=== PATIENT | female | born 1975 | race Caucasian/White ===

== ENCOUNTER 2017-01-07 16:11 | Outpatient (CLI) | payer MEDICAID | END 2017-01-07 16:12 | disposition home or self-care (01) | DX: M25.512 Pain in left shoulder (principal); M75.52 Bursitis of left shoulder ==

== ENCOUNTER 2017-01-11 13:15 | Outpatient (CLI) | payer MEDICAID | END 2017-01-11 13:30 | disposition home or self-care (01) | DX: R07.89 Other chest pain (principal) ==

== ENCOUNTER 2017-01-11 14:20 | Outpatient (CLI) | payer MEDICAID | END 2017-01-11 14:21 | disposition home or self-care (01) | DX: R07.89 Other chest pain (principal) ==

== ENCOUNTER 2017-08-18 16:25 | Emergency (ER) | payer MEDICAID ==
[2017-08-18 16:33] VITALS: BP 127/81
--- NOTE | 2017-08-18 16:46 | ED Physician Documentation ---
History of Present Illness - Stated complaint Stated Complaint: RASH/SWELLING - Chief complaint Chief Complaint: Allergic Rx - History obtained from History obtained from: Patient - History of Present Illness Timing: Other (She woke this morning with a facial rash that is burning, also on the upper chest and anterior neck with some swelling of the anterior neck. The only thing she can think of that might of caused it would be raspberries but she eats those often, did have some last night.) Review of Systems Constitutional: denies: Fever, Chills Eyes: denies: Loss of vision, Decreased vision, Photophobia Ears: denies: Loss of hearing, Ear pain, Drainage/discharge Nose: denies: Rhinorrhea / runny nose, Congestion Throat: denies: Dental pain / toothache, Sore throat PD PAST MEDICAL HISTORY - Past Medical History Cardiovascular: None Endocrine/Autoimmune: None - Past Surgical History Past Surgical History: Yes General: Appendectomy - Present Medications Home Medications: Ambulatory Orders Medication Instructions Recorded Confirmed Cyclobenzaprine [Flexeril] 10 mg PO TID PRN 08/18/17 08/18/17 diphenhydrAMINE [Benadryl] 25 mg PO Q4-6H PRN #15 capsule 08/18/17 predniSONE [Deltasone] 60 mg PO DAILY 5 Days tablet 08/18/17 - Allergies Allergies/Adverse Reactions: Allergies Allergy/AdvReac Type Severity Reaction Status Date / Time Penicillins Allergy Hives Verified 08/18/17 16:40 - Social History Does the pt smoke?: No Smoking Status: Never smoker Does the pt drink ETOH?: Yes Does the pt have substance abuse?: Yes - Immunizations Immunizations are current?: No Immunizations: TDAP >10years/unknown PD ED PE NORMAL - Vitals Vital signs reviewed: Yes - General General: Alert and oriented X 3, No acute distress - HEENT HEENT: PERRL, EOMI - Neck Neck: Supple, no meningeal sign, No bony TTP - Derm Derm: Other (Modest hives on the face and the upper chest wall and anterior neck without airway compromise.) - Neuro Neuro: Alert and oriented X 3, Normal speech Results - Vitals Vitals: Vital Signs - 24 hr 08/18/17 16:29 Temperature 37.1 C Heart Rate 104 H Respiratory 18 Rate Blood Pressure 127/81 H O2 Saturation 98 Oxygen O2 Source Room air Departure - Departure Disposition: Home, Self Care Clinical Impression: Allergic urticaria Condition: Good Record reviewed to determine appropriate education?: Yes Instructions: ED Allergic Reaction General Other Prescriptions: diphenhydrAMINE [Benadryl] 25 mg PO Q4-6H PRN #15 capsule PRN Reason: burning/itching predniSONE [Deltasone] 60 mg PO DAILY 5 Days tablet Comments: Call your doctor to arrange a follow-up appointment, make the next available appointment. In the interim, return anytime if worse or if new symptoms develop. Your blood pressure was elevated today on check into the emergency department. This does not mean that you have hypertension, it is a common phenomenon to come to the emergency department and have elevated blood pressure. I recommend that she see your primary care physician within the week to have it rechecked when you are feeling better.
[2017-08-18] MEDS ORDERED: predniSONE 20 MG TABLET PO STA (16:47)
[2017-08-18] MEDS ORDERED: diphenhydrAMINE 25 MG CAPSULE PO STA (16:47)
[2017-08-18] MEDS ORDERED: diphenhydrAMINE 25 MG CAPSULE PO ONE ×2 (16:56→17:03)
[2017-08-18] MEDS ORDERED: predniSONE 20 MG TABLET ONE ×2 (16:56→17:04)
== END 2017-08-18 17:01 | disposition home or self-care (01) ==
LOC: ED 16:25
DX: L50.0 Allergic urticaria (principal); R03.0 Elevated blood-pressure reading, without diagnosis of hypertension; Z59.0 Homelessness
CPT/HCPCS: 99282; 99283; A9270; J7512

== ENCOUNTER 2017-12-17 18:33 | Emergency (ER) | payer MEDICAID ==
[2017-12-17] MEDS ORDERED: SODIUM CHLORIDE 0.9% 1,000 ML IV ONE (19:04)
[2017-12-17] MEDS ORDERED: MECLIZINE 12.5 MG TABLET PO STA (19:04)
[2017-12-17] MEDS ORDERED: ONDANSETRON 4 MG/2 ML VIAL IVP STA (19:05)
--- NOTE | 2017-12-17 19:09 | ED Physician Documentation ---
History of Present Illness - Stated complaint Stated Complaint: DIZZY - Chief complaint Chief Complaint: Heent - History obtained from History obtained from: Patient - History of Present Illness Timing: Today Pain level max: 3 Pain level now: 3 Improved by: remaining still Worsened by: moving, turning her head - Additonal information Additional information: room spinning today. nausea and vomiting. no fevers. chronic and unchanged neck pain. Review of Systems Constitutional: denies: Fever, Chills Ears: reports: Ear pain (occasional L ear pain) Throat: denies: Sore throat Cardiac: denies: Chest pain / pressure Respiratory: denies: Cough GI: denies: Nausea, Vomiting, Diarrhea Skin: denies: Rash Musculoskeletal: denies: Back pain Neurologic: denies: Focal weakness, Numbness, Confused, Altered mental status, Headache PD PAST MEDICAL HISTORY - Past Medical History Cardiovascular: None Endocrine/Autoimmune: None - Past Surgical History Past Surgical History: Yes General: Appendectomy - Present Medications Home Medications: Ambulatory Orders Medication Instructions Recorded Confirmed LORazepam [Ativan] 0.5 mg PO Q6H PRN #10 tablet 12/17/17 Meclizine HCl [Motion Sickness 25 mg PO Q6HR PRN #20 tablet 12/17/17 Relief] Ondansetron Odt [Zofran] 4 mg TL Q6H PRN #10 tablet 12/17/17 - Allergies Allergies/Adverse Reactions: Allergies Allergy/AdvReac Type Severity Reaction Status Date / Time Penicillins Allergy Hives Verified 12/17/17 19:32 - Social History Does the pt smoke?: No Smoking Status: Never smoker Does the pt drink ETOH?: Yes Does the pt have substance abuse?: Yes - Immunizations Immunizations are current?: No Immunizations: TDAP >10years/unknown PD ED PE NORMAL - Vitals Vital signs reviewed: Yes - General General: Alert and oriented X 3, No acute distress - HEENT HEENT: PERRL, EOMI, Ears normal, Moist mucous membranes - Neck Neck: Supple, no meningeal sign, No bony TTP - Cardiac Cardiac: RRR - Respiratory Respiratory: No respiratory distress, Clear bilaterally - Abdomen Abdomen: Soft, Non tender, Non distended - Back Back: No spinal TTP - Derm Derm: Warm and dry, No rash - Extremities Extremities: No edema - Neuro Neuro: Alert and oriented X 3, desktop support manager 2-12 intact, No motor deficit, No sensory deficit, Other (+ hallpike to the R. horizontal nystagmus present. normal cerebellar tests) Eye Opening: Spontaneous Motor: Obeys Commands Verbal: Oriented GCS Score: 15 - Psych Psych: Normal mood, Normal affect Results - Vitals Vitals: Vital Signs - 24 hr 12/17/17 12/17/17 12/17/17 18:40 20:20 20:41 Temperature 37.3 C Heart Rate 91 77 96 Respiratory 18 16 14 Rate Blood Pressure 132/77 H 127/83 H 117/77 O2 Saturation 100 100 98 12/17/17 21:05 Temperature Heart Rate 86 Respiratory 14 Rate Blood Pressure 127/83 H O2 Saturation 100 Oxygen O2 Source Room air - Labs Labs: Laboratory Tests 12/17/17 12/17/17 19:12 19:12 WBC 11.7 H RBC 4.64 Hgb 14.1 Hct 42.3 MCV 91.1 MCH 30.4 MCHC 33.3 RDW 12.8 Plt Count 319 MPV 7.9 Neut # 7.7 H Lymph # 3.1 Nance # 0.6 Eos # 0.1 Baso # 0.1 Absolute Nucleated RBC 0.01 Nucleated RBC % 0.1 Sodium 139 Potassium 3.5 Chloride 99 L Carbon Dioxide 24 Anion Gap 16.0 H BUN 10 Creatinine 0.7 Estimated GFR (MDRD) 92 Glucose 99 Calcium 9.7 PD MEDICAL DECISION MAKING - ED course Complexity details: reviewed results, re-evaluated patient, considered differential, d/w patient ED course: Patient is a 42-year-old female who presents to the emergency department with what appears to be BPPV. No evidence of stroke. No evidence of tumor mass. Feels better after meclizine, Ativan, Zofran and IV fluids. Toradol helped with her pain. She is well-appearing, nontoxic. Ambulating well. Has a steady gait in the emergency department after medication. Will prescribe medication for home and follow-up with her doctor. Patient counseled regarding signs and symptoms for which I believe and urgent re-evaluation would be necessary. Patient with good understanding of and agreement to plan and is comfortable going home at this time This document was made in part using voice recognition software. While efforts are made to proofread this document, sound alike and grammatical errors may occur. Departure - Departure Disposition: 01 Home, Self Care Clinical Impression: Vertigo Condition: Good Instructions: ED Vertigo Unspecified Follow-Up: Alex Lopez MD [Primary Care Provider] - Within 1 week Prescriptions: Meclizine HCl [Motion Sickness Relief] 25 mg PO Q6HR PRN #20 tablet PRN Reason: Vertigo LORazepam [Ativan] 0.5 mg PO Q6H PRN #10 tablet PRN Reason: Dizziness Ondansetron Odt [Zofran] 4 mg TL Q6H PRN #10 tablet PRN Reason: Nausea / Vomiting Comments: Return if you worsen. This should improve over the next few days. Rest at home Discharge Date/Time: 12/17/17 21:06
[2017-12-17 19:27] LABS: CALCIUM 9.7 mg/dL (8.5-10.3); CREATININE 0.7 mg/dL (0.4-1.0)
[2017-12-17 19:31] LABS: BASOPHILS # (AUTO) 0.1 10^3/uL (0.0-0.1); BASOPHILS % (AUTO) 1.2 %; EOSINOPHILS # (AUTO) 0.1 10^3/uL (0.0-0.7); EOSINOPHILS % (AUTO) 0.8 %; HGB - HEMOGLOBIN 14.1 g/dL (12.0-16.0); LYMPHOCYTES # (AUTO) 3.1 10^3/uL (1.5-3.5); LYMPHOCYTES % (AUTO) 26.5 %; MEAN CORPUSCULAR HEMOGLOBIN 30.4 pg (27.0-31.0); MEAN CORPUSCULAR HGB CONC 33.3 g/dL (32.0-36.0); MEAN CORPUSCULAR VOLUME 91.1 fL (81.0-99.0); MEAN PLATELET VOLUME 7.9 fL (7.9-10.8); MONOCYTES # (AUTO) 0.6 10^3/uL (0.0-1.0); MONOCYTES % (AUTO) 5.3 %; NEUTROPHILS # (AUTO) 7.7 10^3/uL (1.5-6.6); NEUTROPHILS % (AUTO) 66.2 %; PLT - PLATELET COUNT 319 10^3/uL (130-450); RED BLOOD COUNT 4.64 10^6/uL (4.20-5.40); RED CELL DISTRIBUTION WIDTH 12.8 % (12.0-15.0); WHITE BLOOD COUNT 11.7 x10^3/uL (4.8-10.8)
[2017-12-17] MEDS ORDERED: KETOROLAC 60 MG/2 ML VIAL IVP STA (19:44)
[2017-12-17] MEDS ORDERED: LORazepam 2 MG/ML VIAL IVP STA (20:18)
[2017-12-17 21:06] VITALS: BP 127/83
== END 2017-12-17 21:06 | disposition home or self-care (01) ==
LOC: ED 18:33
DX: R42 Dizziness and giddiness (principal)
CPT/HCPCS: 36415; 80048; 85025; 96361; 96374; 96375; 99284; A9270; J2060

== ENCOUNTER 2018-03-07 07:52 | Outpatient (CLI) | payer MEDICAID ==
--- NOTE | 2018-03-07 12:39 | MRI Report ---
EXAM: MRI CERVICAL SPINE WITHOUT CONTRAST EXAM DATE: 03/07/2018 08:34 AM. CLINICAL HISTORY: Cervical spondylosis with radiculopathy. Chronic neck pain. COMPARISONS: Radiographs cervical spine 05/30/2017 TECHNIQUE: Multiplanar, multisequence T1-weighted and fluid-sensitive sequences of the cervical spine without contrast. Other: None. FINDINGS: Neurologic Structures: The visualized posterior fossa structures are unremarkable. No signal abnormal ity in the visualized spinal cord. Alignment: No scoliosis or spondylolisthesis. Bone Marrow: No gross fractures or bone lesions. No marrow edema. Interspace Levels/Facets: C1-C2: Unremarkable. C2-C3: Unremarkable. C3-C4: Unremarkable. C4-C5: Mild diffuse disk bulge. This contacts and minimally flattens the cord. Mild anterior dural co mpression. No significant central canal or foraminal narrowing. C5-C6: Mild disk bulge. No significant central canal foraminal narrowing. C6-C7: Large diffuse disk bulge with an annular fissure and superimposed left central disk extrusion measuring 5 mm. This significantly flattens the left aspect cord. Mild bilateral facet arthropathy. M oderate to severe central canal narrowing and severe left lateral recess narrowing. [id number] left and mild right foraminal narrowing. C7-T1: Unremarkable. Musculature: Normal. No edema or fatty atrophy. Other: The paravertebral and prevertebral soft tissues are normal. IMPRESSION: 1. The most significant level is the C6-C7 level which demonstrates a large diffuse disk bulge with a n annular fissure and superimposed left central disk extrusion measuring 5 mm. This significantly fla ttens the left aspect cord. This results in moderate to severe central canal narrowing and severe lef t lateral recess narrowing. [id number] left and mild right foraminal narrowing. 2. Mild degenerative changes, as detailed above, at C4-C5 and C5-C6 levels, with no significant centr al canal or foraminal narrowing at these or other remaining cervical levels. No evidence of acute fra cture or malalignment. No bone marrow edema. No cord signal normality at any level. [facility] Referring Provider Line: [phone] SITE ID: [id number]
== END 2018-03-07 07:53 | disposition home or self-care (01) ==
LOC: DI 07:52
PROVIDERS: ATTEND Orthopaedic Surgery
DX: M50.223 Other cervical disc displacement at C6-C7 level (principal); M50.321 Other cervical disc degeneration at C4-C5 level; M47.892 Other spondylosis, cervical region
CPT/HCPCS: 72141

== ENCOUNTER 2018-06-07 14:40 | Emergency (ER) | payer MEDICAID ==
[2018-06-07 14:56] VITALS: BP 115/75
--- NOTE | 2018-06-07 15:20 | ED Physician Documentation ---
PD HPI SKIN - Stated complaint Stated Complaint: NECK PX/SWELLING POST THYROIDECTOMY - Chief complaint Chief Complaint: Wound - History obtained from History obtained from: Patient, Family - History of Present Illness Timing - onset: Yesterday (She is about 2 weeks out from a cervical discectomy with cadaveric discs and I think a fusion done at [facility]. Last night she developed some fullness in the left supraclavicular area without new neurologic symptoms or fevers.) Review of Systems Constitutional: denies: Fever, Chills Cardiac: denies: Chest pain / pressure, Palpitations Respiratory: denies: Dyspnea, Cough PD PAST MEDICAL HISTORY - Past Medical History Cardiovascular: None Endocrine/Autoimmune: None - Past Surgical History Past Surgical History: Yes General: Appendectomy - Present Medications Home Medications: Ambulatory Orders Medication Instructions Recorded Confirmed No Known Home Medications [No 06/07/18 06/07/18 Known Home Medications] - Allergies Allergies/Adverse Reactions: Allergies Allergy/AdvReac Type Severity Reaction Status Date / Time Penicillins Allergy Hives Verified 12/17/17 19:32 - Social History Does the pt smoke?: No Smoking Status: Never smoker Does the pt drink ETOH?: Yes Does the pt have substance abuse?: Yes - Immunizations Immunizations are current?: No Immunizations: TDAP >10years/unknown PD ED PE NORMAL - Vitals Vital signs reviewed: Yes - General General: Alert and oriented X 3, No acute distress - Neck Neck: Other (There are 2 healing incisions over the anterior neck, both to the left of midline. Both are clean dry and intact. There is no significant fullness or tenderness in the supraclavicular area where she points to. Bedside ultrasound shows no subcutaneous fluid collection in all of the deep veins are compressible.) - Neuro Neuro: Alert and oriented X 3, Normal speech Results - Vitals Vitals: Vital Signs - 24 hr 06/07/18 14:49 Temperature 36.4 C L Heart Rate 97 Respiratory 16 Rate Blood Pressure 115/75 O2 Saturation 98 Oxygen O2 Source Room air PD MEDICAL DECISION MAKING - ED course ED course: At this point does not seem to be anything of significance, watchful waiting and signs to return for were discussed. - Sepsis Event Vital Signs: Vital Signs - 24 hr 06/07/18 14:49 Temperature 36.4 C L Heart Rate 97 Respiratory 16 Rate Blood Pressure 115/75 O2 Saturation 98 Oxygen O2 Source Room air Departure - Departure Disposition: Home, Self Care Clinical Impression: Neck pain Condition: Good Record reviewed to determine appropriate education?: Yes Instructions: Cervical Disk Surg Comments: If you develop increased pain, swelling, or any fever, please return for reevaluation. Otherwise follow-up with your surgeon as scheduled.
== END 2018-06-07 15:23 | disposition home or self-care (01) ==
LOC: ED 14:40
DX: M54.2 Cervicalgia (principal); Z98.890 Other specified postprocedural states
CPT/HCPCS: 99282; 99283

== ENCOUNTER 2019-04-21 21:27 | Emergency (ER) | payer MEDICAID ==
--- NOTE | 2019-04-21 22:59 | ED Physician Documentation ---
PD HPI HEADACHE - Stated complaint Stated Complaint: HEADACHE - Chief complaint Chief Complaint: Neuro - History obtained from History obtained from: Patient - History of Present Illness Timing - onset: Other (about two years straight (per patient)) Timing - details: Waxing and waning Worst headache ever?: No: Worst headache ever? Location: Global Quality: Throbbing, Aching Associated symptoms: Nausea. No: Fever, Stiff neck, Vomiting, Weakness, Numbness, Syncope, Seizure, Eye pain, Vision changes Improved by: Rest, Dark room, Quiet Worsened by: Light, Noise, Moving Similar symptoms before: Diagnosis (migraine headache) Recently seen: Not recently seen Review of Systems Constitutional: reports: Reviewed and negative Eyes: reports: Photophobia Ears: reports: Reviewed and negative Cardiac: reports: Reviewed and negative Respiratory: reports: Reviewed and negative GI: reports: Nausea, Vomiting. denies: Abdominal Pain Neurologic: reports: Headache. denies: Generalized weakness, Focal weakness, Numbness PD PAST MEDICAL HISTORY - Past Medical History Past Medical History: Yes Cardiovascular: None Respiratory: None Neuro: Headaches Endocrine/Autoimmune: None GI: None SOLE ROUNDER: None : None HEENT: None Psych: Anxiety Musculoskeletal: None Derm: None - Past Surgical History Past Surgical History: Yes General: Appendectomy Ortho: Spine surgery - Present Medications Home Medications: Ambulatory Orders Medication Instructions Recorded Confirmed Clindamycin HCl [Clindamycin 300MG 300 mg PO Q6H #40 capsule 10/31/18 CAP] Cyclobenzaprine [Flexeril] 1 tab PO DAILY 10/31/18 10/31/18 Hydrocodone/Acetaminophen 1 - 2 each PO Q6H PRN #14 tablet 10/31/18 [Hydrocodon-Acetaminophen 5-325] Hydrocodone/Acetaminophen 1 - 2 each PO Q6H PRN #14 tablet 04/22/19 [Hydrocodon-Acetaminophen 5-325] Ondansetron Odt [Zofran] 4 mg TL Q6H PRN #10 tablet 04/22/19 - Allergies Allergies/Adverse Reactions: Allergies Allergy/AdvReac Type Severity Reaction Status Date / Time Latex, Natural Rubber Allergy Rash Verified 04/21/19 21:38 Penicillins Allergy Hives Verified 04/21/19 21:38 - Social History Does the pt smoke?: No Smoking Status: Former smoker Does the pt drink ETOH?: No Does the pt have substance abuse?: No - Immunizations Immunizations are current?: No Immunizations: TDAP >10years/unknown - POLST Patient has POLST: No PD ED PE NORMAL - Vitals Vital signs reviewed: Yes - General General: Alert and oriented X 3, Well developed/nourished, Other (appears uncomfortable) - HEENT HEENT: Moist mucous membranes - Neck Neck: Supple, no meningeal sign - Cardiac Cardiac: RRR, No murmur - Respiratory Respiratory: No respiratory distress, Clear bilaterally - Abdomen Abdomen: Soft, Non tender - Neuro Neuro: Alert and oriented X 3, pharmacologist 2-12 intact, No motor deficit, No sensory deficit, Normal speech Results - Vitals Vitals: Oxygen O2 Source Room air - Labs Labs: Laboratory Tests 04/21/19 04/21/19 23:40 23:40 WBC 10.8 RBC 3.86 L Hgb 12.2 Hct 35.4 L MCV 91.5 MCH 31.6 H MCHC 34.5 RDW 12.9 Plt Count 305 MPV 7.7 L Neut # (Auto) 6.9 H Lymph # (Auto) 3.2 [place] # (Auto) 0.5 Eos # (Auto) 0.2 Baso # (Auto) 0.0 Absolute Nucleated RBC 0.00 Nucleated RBC % 0.0 Sodium 140 Potassium 3.4 L Chloride 107 Carbon Dioxide 23 Anion Gap 10.0 BUN 12 Creatinine 0.7 Estimated GFR (MDRD) 91 Glucose 105 H Calcium 9.3 PD MEDICAL DECISION MAKING - ED course Complexity details: reviewed results, re-evaluated patient, considered differential, d/w patient Departure - Departure Disposition: 01 Home, Self Care Clinical Impression: Headache Condition: Good Instructions: ED Cephalgia Unspecified Prescriptions: Hydrocodone/Acetaminophen [Hydrocodon-Acetaminophen 5-325] 1 - 2 each PO Q6H PRN #14 tablet PRN Reason: pain Ondansetron Odt [Zofran] 4 mg TL Q6H PRN #10 tablet PRN Reason: Nausea / Vomiting Discharge Date/Time: 04/22/19 01:35
[2019-04-21] MEDS ORDERED: KETOROLAC 30 MG/ML VIAL IVP STA (23:08)
[2019-04-21] MEDS ORDERED: diphenhydrAMINE INJ 50 MG/ML VIAL IVP STA (23:08)
[2019-04-21] MEDS ORDERED: SODIUM CHLORIDE 0.9% 1,000 ML IV STA (23:08)
[2019-04-21] MEDS ORDERED: METOCLOPRAMIDE 10 MG/2 ML VIAL IVP STA (23:09)
[2019-04-21 23:59] LABS: BASOPHILS % (AUTO) 0.4 %; EOSINOPHILS # (AUTO) 0.2 10^3/uL (0.0-0.7); EOSINOPHILS % (AUTO) 1.8 %; HGB - HEMOGLOBIN 12.2 g/dL (12.0-16.0); LYMPHOCYTES # (AUTO) 3.2 10^3/uL (1.5-3.5); LYMPHOCYTES % (AUTO) 29.2 %; MEAN CORPUSCULAR HEMOGLOBIN 31.6 pg (27.0-31.0); MEAN CORPUSCULAR HGB CONC 34.5 g/dL (32.0-36.0); MEAN CORPUSCULAR VOLUME 91.5 fL (81.0-99.0); MEAN PLATELET VOLUME 7.7 fL (7.9-10.8); MONOCYTES # (AUTO) 0.5 10^3/uL (0.0-1.0); MONOCYTES % (AUTO) 4.8 %; NEUTROPHILS # (AUTO) 6.9 10^3/uL (1.5-6.6); NEUTROPHILS % (AUTO) 63.8 %; PLT - PLATELET COUNT 305 10^3/uL (130-450); RED BLOOD COUNT 3.86 10^6/uL (4.20-5.40); RED CELL DISTRIBUTION WIDTH 12.9 % (12.0-15.0); WHITE BLOOD COUNT 10.8 x10^3/uL (4.8-10.8)
[2019-04-22 00:06] LABS: CALCIUM 9.3 mg/dL (8.5-10.3); CREATININE 0.7 mg/dL (0.4-1.0)
[2019-04-22] MEDS ORDERED: HYDROcod/ACETAM 5/325 MG TABLET PO STA (00:36)
[2019-04-22 01:34] VITALS: BP 120/95
== END 2019-04-22 01:35 | disposition home or self-care (01) ==
LOC: ED 21:27
DX: R51 Headache (principal); R11.2 Nausea with vomiting, unspecified
CPT/HCPCS: 36415; 80048; 85025; 96374; 99283; A9270; J1200; J2765

== ENCOUNTER 2022-08-02 14:39 | Outpatient (CLI) | payer MEDICAID | END 2022-08-02 14:40 | disposition home or self-care (01) | LOC: DI.N 14:39 | PROVIDERS: ATTEND Nurse Practitioner Family | DX: Z53.9 Procedure and treatment not carried out, unspecified reason (principal) ==

== ENCOUNTER 2022-08-03 13:49 | Outpatient (CLI) | payer MEDICAID ==
--- NOTE | 2022-08-03 15:46 | XRAY Report ---
PROCEDURE: Cervical Spine 2 View INDICATIONS: NECK PX TECHNIQUE: 3 view(s) of the cervical spine were acquired. COMPARISON: None. FINDINGS: Bones: No fractures or dislocations to the T1 level. C6-7 demonstrates ACDF. Disc space narrowing at C4-5 with anterior osteophytes consistent with disc disease. The lateral masses of C1 appear intact on the odontoid view. No suspicious bony lesions. Soft tissues: No prevertebral soft tissue swelling. IMPRESSION: 1. Postoperative changes at C6-7 of ACDF without evidence of complication. 2. Degenerative disc disease of C4-5 Reviewed by: Tu Grover on 08/03/2022 3:45 PM PDT Approved by: Tu Grover on 08/03/2022 3:45 PM PDT Station ID: [id number]
== END 2022-08-03 13:50 | disposition home or self-care (01) ==
LOC: DI.N 13:49
PROVIDERS: ATTEND Nurse Practitioner Family
DX: M47.812 Spondylosis without myelopathy or radiculopathy, cervical region (principal)